=== PATIENT | male | born 1955 | race Caucasian/White ===

== ENCOUNTER 2017-10-10 09:38 | Day surgery (SDC) | payer BC ==
[~2017-10-10] VITALS: Ht 175.3 cm; Wt 93.0 kg
[~2017-10-10 09:38] MED LIST: ASPIR-LOW81 MG PO; LEVOTHYROXINE150 MCG PO; METOPROLOL SUCC25 MG PO
== END 2017-10-10 16:50 | disposition home or self-care (01) ==
LOC: CATH 09:38
DX: I25.10 Atherosclerotic heart disease of native coronary artery without angina pectoris (principal); E78.5 Hyperlipidemia, unspecified
CPT/HCPCS: 93005; C1769; C1887; J1200; J1644; J2250; J7040